=== PATIENT | female | born 1980 | race Two or more races ===

== ENCOUNTER 2017-04-24 21:52 | Emergency (ER) | payer OTHER ==
[~2017-04-24] VITALS: Ht 160 cm; Wt 59.0 kg
--- NOTE | 2017-04-24 22:24 | NUR ---
DR MAXWELL INTO EVAL PATIENT
--- NOTE | 2017-04-24 23:59 | NUR ---
Patient discharged to home in stable conditon. Written and verbal after care instructions given. Patient verbalizes understanding of instructions. WALKED OUT OF ER WITH NO DISTRESS NOTED
[2017-04-25] VITALS: BP 110/75
== END 2017-04-25 00:01 | disposition home or self-care (01) ==
LOC: ER 21:55
DX: S62.002A Unspecified fracture of navicular [scaphoid] bone of left wrist, initial encounter for closed fracture (principal); V49.9XXA Car occupant (driver) (passenger) injured in unspecified traffic accident, initial encounter; Y93.89 Activity, other specified; Y92.413 State road as the place of occurrence of the external cause; Y99.9 Unspecified external cause status
CPT/HCPCS: 73110; A4663

== ENCOUNTER 2019-03-13 22:45 | Emergency (ER) | payer MEDICAID, OTHER ==
[~2019-03-13] VITALS: Ht 160 cm; Wt 61.2 kg
[2019-03-14] MEDS ORDERED: ACETAMINOPHEN 325 MG TABLET PO ONE
[2019-03-14] MEDS ORDERED: ACETAMINOPHEN ES 500 MG TABLET ONE (00:18)
--- NOTE | 2019-03-14 00:28 | NUR ---
DOWN FOR CT ACCOMPANIED BY TECH VIA GURNEY PT KEPT SAFE. NAD
[2019-03-14 01:04] VITALS: BP 110/60
--- NOTE | 2019-03-14 01:04 | NUR ---
Patient discharged to home in stable conditon. Written and verbal after care instructions given. Patient verbalizes understanding of instructions.
== END 2019-03-14 01:06 | disposition home or self-care (01) ==
LOC: ER 22:46
DX: R07.89 Other chest pain (principal); M54.5 Low back pain; V43.52XA Car driver injured in collision with other type car in traffic accident, initial encounter; Y93.89 Activity, other specified; Y92.410 Unspecified street and highway as the place of occurrence of the external cause; Y99.8 Other external cause status
CPT/HCPCS: 71045; 72100; A4663; A9150